=== PATIENT | male | born 1990 | race Caucasian/White ===

== ENCOUNTER 2024-07-30 17:10 | Emergency (ER) | payer MEDICAID ==
[~2024-07-30] VITALS: Ht 180.3 cm; Wt 84.8 kg
[2024-07-30 17:49] VITALS: BP 128/78; TEMP 98.2
[2024-07-30] MEDS ORDERED: IBUPROFEN 600 MG TABLET ONE (18:27)
[2024-07-30] MEDS: IBUPROFEN 600 MG TABLET PO ONE (18:30)
[2024-07-30] MEDS ORDERED: IBUP-1490 PO (18:54)
[2024-07-30 18:58] VITALS: O2SAT 99
== END 2024-07-30 19:00 | disposition home or self-care (01) ==
LOC: ER 17:16
DX: S62.615A Displaced fracture of proximal phalanx of left ring finger, initial encounter for closed fracture (principal); F17.200 Nicotine dependence, unspecified, uncomplicated; X58.XXXA Exposure to other specified factors, initial encounter; Y93.89 Activity, other specified; Y92.89 Other specified places as the place of occurrence of the external cause; Y99.8 Other external cause status
CPT/HCPCS: 73140-TC